=== PATIENT | female | born 1945 | race African-American/Black ===

== ENCOUNTER → 2023-01-09 | Outpatient (CLI) | payer MEDICARE, MEDICAID ==
[~2023-01-09] MED LIST: ASPI-1497 PO; METF-414 PO
== END | disposition home or self-care (01) ==
LOC: NM 08:43
PROVIDERS: ATTEND Internal Medicine
DX: M89.8X8 Other specified disorders of bone, other site (principal)
CPT/HCPCS: 78306; A9503